=== PATIENT | female | born 1960 | race Caucasian/White ===

== ENCOUNTER 2016-09-10 22:06 | Emergency (ER) | payer OTHER ==
[~2016-09-10] VITALS: Ht 160 cm; Wt 63.5 kg
[~2016-09-10 22:06] MED LIST: B COMPLEX-VITA1 EACH; CLONAZEPAM0.125 MG; ENDOCET 10-3251 EACH PO; ERYTHROMYCIN E3.5 G1 OPHTHALMIC; FLEXERIL; LEXAPRO20 MG; VITAMIN D22000 UNIT; ZONEGRAN100 MG PO
[2016-09-10] MEDS ORDERED: CELEXA20 MG PO (22:12)
[2016-09-10] MEDS ORDERED: NORCO 5-325 TA1 EACH PO (23:18)
[2016-09-10 23:36] VITALS: BP 120/67
== END 2016-09-10 23:37 | disposition home or self-care (01) ==
LOC: ER 22:06
DX: S61.213A Laceration without foreign body of left middle finger without damage to nail, initial encounter (principal); S69.92XA Unspecified injury of left wrist, hand and finger(s), initial encounter; F17.210 Nicotine dependence, cigarettes, uncomplicated; Z90.89 Acquired absence of other organs; Z88.8 Allergy status to other drugs, medicaments and biological substances; V49.9XXA Car occupant (driver) (passenger) injured in unspecified traffic accident, initial encounter; Y93.89 Activity, other specified; Y92.89 Other specified places as the place of occurrence of the external cause; Y99.9 Unspecified external cause status